=== PATIENT | male | born 1995 | race African-American/Black ===

== ENCOUNTER 2016-10-30 00:26 | Emergency (ER) | payer SELFPAY ==
[~2016-10-30] VITALS: Ht 172.7 cm; Wt 72.5 kg
[~2016-10-30 00:26] MED LIST: DICL75 PO; ROBA750T3 PO
[2016-10-30 00:29] VITALS: BP 143/69; PULSE 94; RESP 22; TEMP 98.9; O2SAT 96
[2016-10-30 00:42] VITALS: BP 126/76; PULSE 78; RESP 23; TEMP 98.3; O2SAT 97
[2016-10-30] MEDS ORDERED: PROPOFOL 200 MG/20 ML AMP IV ONE (01:00)
[2016-10-30] MEDS ORDERED: SODIUM CHLOR 0.9% 1000 ML INJ 1,000 ML IV ONE (01:00)
--- NOTE | 2016-10-30 01:17 | RADRPT ---
EXAM DATE/TIME: 10/30/2016 00:36 [facility] COMPARISON: No previous studies available for comparison. INDICATIONS : Pt putting on seatbelt and says dislocated right shoulder. States has happened 4 times prior. MEDICAL HISTORY : None. SURGICAL HISTORY : None. ENCOUNTER: Initial ACUITY: 1 day PAIN SCORE: 8/10 LOCATION: Right Shoulder FINDINGS: Multiple view examination of the right shoulder demonstrates anterior joint dislocation of the right shoulder joint. The bony structures are grossly intact.. CONCLUSION: Anterior joint dislocation. Osmel Weinstein MD on October 30, 2016 at 1:15 Board Certified Radiologist. This report was verified electronically.
[2016-10-30] MEDS ORDERED: ONDANSETRON HCL 4 MG/2 ML VIAL ONE (01:26)
[2016-10-30] MEDS ORDERED: MORPHINE SULFATE 8 MG/ML INJ ONE (01:27)
[2016-10-30 01:30] VITALS: O2SAT 99
[2016-10-30] MEDS ORDERED: MORPHINE SULFATE 4 MG/ML INJ IV PUSH ONE (01:30)
[2016-10-30] MEDS ORDERED: ONDANSETRON HCL 4 MG/2 ML VIAL IV ONE (01:30)
[2016-10-30 01:40] VITALS: BP 117/63; PULSE 74; RESP 12; O2SAT 99
--- NOTE | 2016-10-30 01:48 | PD ---
HPI Chief Complaint: Injury Time Seen by Provider: 00:35 Travel History International Travel<30 days: No Contact w/Intl Traveler<30days: No Traveled to known affect area: No History of Present Illness HPI The patient is a 21 year old male who presents to the [facility] emergency department with a history of right shoulder pain that began suddenly after he attempted to put on his seatbelt. The patient reports that he felt his shoulder pop out of place. He reports that he has a problem with recurrent shoulder dislocations. He reports that it first began when he was playing football school. He reports that in 2010 he did have surgical repair for recurrent dislocation, however in spite of this he continues to have problems with dislocation. His last dislocation was 4 months ago. He denies seeing an orthopedic physician currently. The patient reports that he has been drinking alcohol this evening. He did have one beer and 3-4 shots of tequila. Otherwise on review of systems, the patient denies any recent fevers, cough, congestion, neck pain, chest pain, shortness of breath, abdominal pain, vomiting, diarrhea, urinary symptoms, or neurologic symptoms. [facility] Past Medical History Narrative Medical The patient's past medical history is significant for childhood asthma, history of recurrent right shoulder dislocation. Asthma: Yes Diminished Hearing: No Respiratory: Yes (ASTHMA) Immunizations Current: Yes Past Surgical History Narrative Surgical The patient's past surgical history is significant for right shoulder fixation due to recurrent shoulder dislocation, right knee surgery related to a meniscus injury. Social History Alcohol Use: Yes (SOCIAL) Tobacco Use: No Substance Use: Yes (marijuana) Allergies-Medications (Allergen,Severity, Reaction): Coded Allergies: No Known Allergies (Verified , 11/17/15) Reported Meds & Prescriptions Reported Meds & Active Scripts Active EC-Naprosyn (Naproxen) 500 Mg Tabdr 500 Mg PO BID PRN Review of Systems Except as stated in HPI: all other systems reviewed are Neg General / Constitutional: No: Fever Eyes: No: Visual changes HENT: No: Headaches Cardiovascular: No: Chest Pain or Discomfort Respiratory: No: Shortness of Breath Gastrointestinal: No: Abdominal Pain Genitourinary: No: Dysuria Musculoskeletal: Positive: Myalgias, Arthralgias, Limited ROM, Pain Skin: No Rash Neurologic: No: Weakness Psychiatric: No: Depression Endocrine: No: Polydipsia Hematologic/Lymphatic: No: Easy Bruising Physical Exam Narrative General: The patient is a well-developed well-nourished male in no acute distress. Head and Neck exam: Head is normocephalic atraumatic. Eyes: EOMI, pupils are equal round and reactive to light. Nose: Midline septum with pink mucous membranes Mouth: Dentition unremarkable. Moist mucus membranes. Posterior oropharynx is not erythematous. No tonsillar hypertrophy. Uvula midline. Airway patent. Neck: No palpable lymphadenopathy. No nuchal rigidity. No thyromegaly. Cardiovascular: Regular rate and rhythm without murmurs, gallops, or rubs. Lungs: Clear to auscultation bilaterally. No wheezes, rhonchi, or rales. Abdomen: Soft, without tenderness to palpation in all 4 quadrants of the abdomen. No guarding, rebound, or rigidity. Normal bowel sounds are audible. No tenderness on palpation of McBurney's point. Extremities: No clubbing, cyanosis, or edema. 2+ pulses in all 4 extremities. The patient on examination has a loss of fullness in the glenoid fossa consistent with a shoulder dislocation on the right side. The patient has intact range of motion of the right elbow, right wrist, and hand with full strength. The patient has intact sensation over his fingertips. The patient has less than 3 second capillary refill. No other extremity pain on palpation. Neurologic Exam: Grossly nonfocal. Skin Exam: No rash noted. Intact skin that is warm and dry. Data Data Last Documented VS Vital Signs Date Time Temp Pulse Resp B/P Pulse Ox O2 Delivery O2 Flow Rate FiO2 10/30/16 01:40 74 12 117/63 99 Nasal Cannula 3 10/30/16 00:42 98.3 Orders Iv Access Insert/Monitor (10/30/16 00:39) Ecg Monitoring (10/30/16 00:39) Oximetry (10/30/16 00:39) Shoulder, Complete (>2vws) (10/30/16 ) Propofol 200 Mg/20 Ml Inj (Diprivan 200 (10/30/16 01:00) Sodium Chlor 0.9% 1000 Ml Inj (Ns 1000 M (10/30/16 01:00) Ondansetron Inj (Zofran Inj) (10/30/16 01:30) Morphine Inj (Morphine Inj) (10/30/16 01:30) Ondansetron Inj (Zofran Inj) (10/30/16 01:26) Morphine Inj (Morphine Inj) (10/30/16 01:27) Ketorolac Inj (Toradol Inj) (10/30/16 02:15) Shoulder, Limited(2vws) (10/30/16 01:38) [facility] Medical Decision Making Medical Screen Exam Complete: Yes Emergency Medical Condition: Yes Medical Record Reviewed: Yes Differential Diagnosis Right shoulder dislocation, versus before meals separation, versus fracture Narrative Course During the course of the patients emergency department visit, the patients history, examination, and differential diagnosis were reviewed with the patient. The patient had IV access obtained. The patient was placed on a community outreach manager with oximetry and blood pressure monitoring. A right shoulder x -ray was ordered. The patient was initially provided normal saline 1 L IV fluid bolus. Radiology studies were reviewed and remarkable for a right shoulder x-ray that reveals an anterior shoulder dislocation. The patient consented to a closed reduction of the right shoulder. X-ray post reduction reveals realignment of the shoulder in its anatomic location. The patient was given Toradol 15 mg IV for pain. The patient is resting comfortably and feels better, is alert and in no distress. The patients results and examination findings were discussed with the patient. The repeat examination is unremarkable and benign. The history, exam, diagnostic testing, and current condition do not suggest any significant pathology to warrant further testing, continued ED treatment, admission, or surgical evaluation at this point. The vital signs have been stable. The patient does not have uncontrollable pain, intractable vomiting, or other significant symptoms. The patient's condition is stable and appropriate for discharge. The patient will pursue further outpatient evaluation with a primary care physician or other designated or consulting physician as indicated in the discharge instructions. The patient expressed understanding and was agreeable with this plan. Procedures Procedure Narrative After the risks and benefits were discussed the following procedure was performed: MODERATE SEDATION: The patient was placed on a community outreach manager and pulse oximetry. An ambu bag and suction was immediately available at bedside. The patient was monitored by the nurse. Oxygen saturation , heart rate and blood pressure were monitored. Procedural sedation was acheived using 50 mg of propofol. The patient was observed until awake and alert. Procedural Sedation time in attendance was 20 minutes. Closed reduction right shoulder anterior dislocation: The patient had gentle traction applied in-line with his humerus while his arm was slightly abducted and shoulder was gently externally rotated. There was an audible clunk and deformity that was previously present resolved. The patient has fullness noted again in the glenoid fossa. A postreduction film has been ordered. The patient was placed in a sling and swath. Diagnosis Primary Impression: Recurrent dislocation, right shoulder Referrals: Juan Holguin MD 1 week Patient Instructions: General Instructions, Shoulder Dislocation (ED) Additional Instructions: The patient was instructed to maintain his right shoulder in a sling and swath for the next 3 weeks or until cleared by the orthopedic physician. Med/Other Pt SpecificInfo: Prescription(s) given Scripts Naproxen DR (EC-Naprosyn)500 Mg [id number] Mg PO BID PRN (PAIN GREATER THAN 5) # 10 TAB Ref 0 Prov:Damari Jim MD 10/30/16 Disposition: 01 DISCHARGE HOME Condition: Stable Damari Jim MD Oct 30, 2016 01:48
[2016-10-30] MEDS ORDERED: EC-N500T PO (01:55)
[2016-10-30] MEDS ORDERED: KETOROLAC TROMETHAMINE 30 MG/ML (IVP) VIAL IV PUSH ONE (02:15)
--- NOTE | 2016-10-30 02:52 | RADRPT ---
EXAM DATE/TIME: 10/30/2016 01:57 [facility] COMPARISON: SHOULDER RIGHT COMPLETE (>2VWS), October 30, 2016, 0:36. SHOULDER RIGHT LTD (2VWS), November 17, 2015, 6: 37. INDICATIONS : POST REDUCTION- MEDICAL HISTORY : None. SURGICAL HISTORY : None. ENCOUNTER: Initial ACUITY: 1 day PAIN SCORE: 8/10 LOCATION: Right Shoulder FINDINGS: The previously noted anterior joint dislocation has been satisfactorily reduced. There is good alignm ent at the shoulder joint. The bony structures are grossly intact. CONCLUSION: Good alignment on this post reduction image. Osmel Weinstein MD on October 30, 2016 at 2:49 Board Certified Radiologist. This report was verified electronically.
== END 2016-10-30 02:35 | disposition home or self-care (01) ==
LOC: NEPE 00:26
DX: M24.411 Recurrent dislocation, right shoulder (principal)
CPT/HCPCS: 23650; 73030; 96374; 99152; 99285; J1885; J2270; J7030; J2405